=== PATIENT | male | born 1980 | race Caucasian/White ===

== ENCOUNTER 2023-09-16 00:49 | Emergency (ER) | payer BC, SELFPAY ==
[2023-09-16] MEDS ORDERED: Clindamycin 150 MG CAP ONE (01:32)
== END 2023-09-16 01:50 | disposition home or self-care (01) ==
LOC: NAV ERS 00:49
DX: N44.2 Benign cyst of testis (principal); I10 Essential (primary) hypertension; E78.5 Hyperlipidemia, unspecified; E11.9 Type 2 diabetes mellitus without complications; F17.290 Nicotine dependence, other tobacco product, uncomplicated; Z79.899 Other long term (current) drug therapy
CPT/HCPCS: 87070; 87077; 87205; 99283